=== PATIENT | male | born 1995 | race Caucasian/White ===

== ENCOUNTER 2017-02-01 22:20 | Observation (INO) | payer MEDICAID ==
[2017-02-01 22:38] VITALS: BMI 29.0
[2017-02-01] MEDS ORDERED: Sodium Chloride 0.9% 1,000 ML IV STA (22:46)
[2017-02-02 00:24] LABS: ALB/GLOB RATIO 1.3 (1.1-1.8); ALBUMIN 4.1 g/dL (3.0-4.8); ALT/SGPT 77 U/L (7-56); AMYLASE 62 U/L (35-125); AST/SGOT 36 U/L (15-59); BLOOD UREA NITROGEN 15 mg/dL (7-21); CALCIUM 8.8 mg/dL (8.4-10.5); GFR AFRICAN-AMERICAN > 60; GFR NON-AFRICAN AMERICAN > 60; LIPASE 73 U/L (23-300)
--- NOTE | 2017-02-02 00:31 | ED PDOC ---
Arrival/HPI <Kevin Machuca - Last Filed: 02/02/17 00:57> - General Historian: Patient - History of Present Illness Time/Duration: < week (2 days) Symptom Onset: Gradual Symptom Course: Unchanged Activities at Onset: Rest, Light Context: Home <Julianna Jones - Last Filed: 02/02/17 01:54> - General Chief Complaint: Abdominal Pain Time Seen by Provider: 02/01/17 22:46 - History of Present Illness Narrative History of Present Illness (Text): 02/01/17 22:45 21 year old male, with no significant past medical history, who presents to the Emergency department complaining of LUQ with associated nausea, vomiting, and diarrhea for the past 2 days. Patient reports subjective fever since yesterday, with 4 episodes of vomiting yesterday none today, and 2 episode of diarrhea today. Patient states he noticed some blood in his stool. Patient denies any recent sick contact. Patient described abdominal pain as achy, stabbing, and non -radiating. Patient denies any chest pain, shortness of breath, urinary symptoms , testicular pain, or any other complaints. Patient states he has not taken any medication for pain at home. (Julianna Jones) Past Medical History - Provider Review Nursing Documentation Reviewed: Yes - Infectious Disease Hx of Infectious Diseases: None - Psychiatric Hx Substance Use: No <Julianna Jones - Last Filed: 02/02/17 01:54> Family/Social History - Physician Review Nursing Documentation Reviewed: Yes Family/Social History: Unknown Family HX Smoking Status: Never Smoked Hx Alcohol Use: Yes Frequency of alcohol use: Socially Hx Substance Use: No <Julianna Jones - Last Filed: 02/02/17 01:54> Allergies/Home Meds <Kevin aMchuca - Last Filed: 02/02/17 00:57> <Julianna Jones - Last Filed: 02/02/17 01:54> Allergies/Adverse Reactions: Allergies shellfish derived Allergy (Verified 02/01/17 22:43) SHORTNESS OF BREATH Review of Systems - Physician Review All systems were reviewed & negative as marked: Yes - Review of Systems Constitutional: Fevers (+subjective fever) Eyes: Normal ENT: Normal Respiratory: Normal. absent: SOB, Cough Cardiovascular: Normal. absent: Chest Pain Gastrointestinal: Abdominal Pain, Diarrhea, Nausea, Vomiting, Hematochezia, Hematemesis Genitourinary Male: Normal. absent: Dysuria, Frequency, Hematuria, Urinary Output Changes Musculoskeletal: Normal. absent: Back Pain, Neck Pain Skin: Normal Neurological: Normal. absent: Headache, Dizziness Endocrine: Normal Hemo/Lymphatic: Normal Psychiatric: Normal <RobertJulianna T - Last Filed: 02/02/17 01:54> Physical Exam Vital Signs Reviewed: Yes Temperature: Afebrile Blood Pressure: Normal Pulse: Tachycardic Respiratory Rate: Normal Appearance: Positive for: Well-Appearing, Non-Toxic, Comfortable Pain Distress: None Mental Status: Positive for: Alert and Oriented X 3 - Systems Exam Head: Present: Atraumatic, Normocephalic Pupils: Present: PERRL Extroacular Muscles: Present: EOMI Conjunctiva: Present: Normal Mouth: Present: Moist Mucous Membranes Neck: Present: Normal Range of Motion Respiratory/Chest: Present: Clear to Auscultation, Good Air Exchange. No: Respiratory Distress, Accessory Muscle Use Cardiovascular: Present: Regular Rate and Rhythm, Normal S1, S2. No: Murmurs Abdomen: Present: Tenderness (LUQ tenderness, some epigastric tenderness), Normal Bowel Sounds. No: Distention, Peritoneal Signs Rectal: Present: Normal Rectal Tone, Other (chaparoned by tanvir REECE ). No: Occult Blood, Rectal Tenderness, Gross Blood, Melena, Hemorrhoids, Fissures, Nodule/Mass/Lesions Back: Present: Normal Inspection. No: CVA Tenderness, Midline Tenderness, Paraspinal Tenderness Upper Extremity: Present: Normal Inspection. No: Cyanosis, Edema Lower Extremity: Present: Normal Inspection, NORMAL PULSES, Normal ROM, Neurovascularly Intact, Capillary Refill < 2 s. No: Edema, Cyanosis, Tenderness , Swelling, Erythema, Deformity, Temperature Abnormalties Neurological: Present: GCS=15, Speech Normal Skin: Present: Warm, Dry, Normal Color. No: Rashes Psychiatric: Present: Alert, Oriented x 3 <Julianna Jones - Last Filed: 02/02/17 01:54> Vital Signs Temp Pulse Resp BP Pulse Ox 02/01/17 22:44 98.2 F 102 H 16 147/74 98 Medical Decision Making <Kevin Machuca - Last Filed: 02/02/17 00:57> - Lab Interpretations I have reviewed the lab results: Yes <Julianna Jones - Last Filed: 02/02/17 01:54> ED Course and Treatment: 02/01/17 22:45 Impression: 21 year old male complaining of LUQ pain, nausea, vomiting, and diarrhea. Plan: -- US Abdomen: FINDINGS: There is a negative sonographic Davison's sign per invasive cardiovascular technologist. No gallstones. No pericholecystic fluid. The common bile duct measures 4. 5 cm which is within normal limits. The liver is normal and measures 15 x 11 x 8 cm. The spleen is normal. The pancreas is nonvisualized. No hydronephrosis. The right kidney measures 10 cm in length and the left kidney measures 12 cm in length. IMPRESSION: No acute findings. -- CT Abdomen and Pelvis w/o contrast: FINDINGS: The liver, spleen, gallbladder and pancreas appear grossly normal on this non- contrast study. No perinephric stranding. No hydronephrosis. No obstructing calculi. The bowel appears grossly normal. A normal appendix is identified coronal images 45 through 53. There are innumerable mesenteric lymph nodes throughout the abdomen, some of which are borderline prominent. This could represent the patient's baseline however infectious, inflammatory, neoplastic etiologies would also be possible. There is no focal stranding within the fat to suggest mesenteric adenitis. Short-term followup is recommended to assess for stability. There is a small umbilical fat hernia. IMPRESSION: Numerous mesenteric lymph nodes throughout the abdomen as discussed above. -- CBC: wbc:18.4 + eosinophils 18, bands 3 --CMP: alt; 77 --amylase -- lipase -- Urinalysis: + trace protein -- 1L IV fluids -- Zofran, Protonix -- Reassess and disposition Progress Notes: case discussed with dr. nunes; accepts observational status admission for leukocytosis, abdominal pain. with gi consult. pt with abdominal pain, Numerous mesenteric lymph nodes throughout the abdomen, eosinophilia and bandemia. pt recently moved from [facility] to 3 months ago. blood cultures pending. case discussed with dr. machuca; will start rocephin and flagyl IV. impression; abdominal pain, leukocytosis, bandemia admit observational status to med/surg. 02/02/17 01:54 (Azoia,Julianna T) - Lab Interpretations Lab Results: 02/02/17 00:00 02/02/17 00:00 Lab Results 02/02/17 00:55: Urine Color Yellow, Urine Appearance Clear, Urine pH 6.0, Ur Specific [place] 1.025, Urine Protein Trace H, Urine Glucose (UA) Negative, Urine Ketones Negative, Urine Blood Negative, Urine Nitrate Negative, Urine Bilirubin Negative, Urine Urobilinogen 0.2, Ur Leukocyte Esterase Negative, Urine RBC Pending, Urine WBC Pending 02/02/17 00:00: WBC 18.4 H, RBC 5.06, Hgb 15.2, Hct 42.2, MCV 83.4, MCH 30.0, MCHC 36.0, RDW 13.1, Plt Count 307, MPV 11.7 H, Neutrophils % (Manual) 54, Band Neutrophils % 3 H, Lymphocytes % (Manual) 17 L, Monocytes % (Manual) 8 H, Eosinophils % (Manual) 18 H, Platelet Evaluation Normal 02/02/17 00:00: Sodium 139, Potassium 3.6, Chloride 102, Carbon Dioxide 29, Anion Gap 12, BUN 15, Creatinine 1.1, Est GFR ( Amer) > 60, Est GFR (Non- Af Amer) > 60, Random Glucose 93, Calcium 8.8, Total Bilirubin 0.3, AST 36, ALT 77 H, Alkaline Phosphatase 132, Total Protein 7.3, Albumin 4.1, Globulin 3.3, Albumin/Globulin Ratio 1.3, Amylase 62, Lipase 73 - RAD Interpretation Radiology Orders: 02/01/17 23:22 ABD & PELVIS W/O PO OR IV CONT [CT] Stat ABDOMEN COMPLETE [US] Stat - Medication Orders Current Medication Orders: Metronidazole (Flagyl) 500 mg in 100 mls @ 100 mls/hr IVPB STAT STA PRN Reason: Protocol Stop: 02/02/17 02:31 Ceftriaxone Sodium (Rocephin 1 Gram Ivpb) 1 gm in 100 mls @ 200 mls/hr IVPB STAT STA PRN Reason: Protocol Stop: 02/02/17 01:59 Ciprofloxacin (Cipro 400mg/200ml Dsw) 400 mg in 200 mls @ 133.3 mls/hr IVPB Q12 INGA PRN Reason: Protocol Stop: 02/02/17 11:31 Metronidazole (Flagyl) 500 mg in 100 mls @ 100 mls/hr IVPB Q8 INGA PRN Reason: Protocol Sodium Chloride (Sodium Chloride 0.9%) 1,000 mls @ 100 mls/hr IV .Q10H INGA Pantoprazole Sodium (Protonix Inj) 40 mg IVP DAILY INGA Discontinued Medications Sodium Chloride (Sodium Chloride 0.9%) 1,000 mls @ 999 mls/hr IV .Q1H1M STA Stop: 02/01/17 23:46 Last Admin: 02/02/17 00:03 Dose: 999 mls/hr Ondansetron HCl (Zofran Inj) 4 mg IVP STAT STA Stop: 02/01/17 22:47 Last Admin: 02/02/17 00:03 Dose: 4 mg Pantoprazole Sodium (Protonix Inj) 40 mg IVP STAT STA Stop: 02/01/17 23:17 Last Admin: 02/02/17 00:03 Dose: 40 mg - PA / YOUNG ADULT LIBRARIAN / Resident Statement /DO has reviewed & agrees with the documentation as recorded. / has examined the patient and agrees with the treatment plan. <Kevin Machuca - Last Filed: 02/02/17 00:57> - Scribe Statement The provider has reviewed the documentation as recorded by the Scribe <Julianna Jones - Last Filed: 02/02/17 01:54> - Scribe Statement Lucinda May All medical record entries made by the Scribe were at my direction and personally dictated by me. I have reviewed the chart and agree that the record accurately reflects my personal performance of the history, physical exam, medical decision making, and the department course for this patient. I have also personally directed, reviewed, and agree with the discharge instructions and disposition. (Julianna Jones) Disposition/Present on Arrival <Kevin Machuca - Last Filed: 02/02/17 00:57> - Present on Arrival Any Indicators Present on Arrival: No History of DVT/PE: No History of Uncontrolled Diabetes: No Urinary Catheter: No History of Decub. Ulcer: No History Surgical Site Infection Following: None - Disposition Have Diagnosis and Disposition been Completed?: Yes Disposition Time: 01:32 Patient Plan: Observation <Julianna Jones - Last Filed: 02/02/17 01:54> - Disposition Diagnosis: Abdominal pain, Leukocytosis Disposition: HOSPITALIZED Patient Problems: Current Active Problems Problem Status Onset Abdominal pain Acute Leukocytosis Acute Condition: FAIR
[2017-02-02 00:32] LABS: HEMOGLOBIN 15.2 gm/dL (14.0-18.0); MEAN CELL VOLUME 83.4 fL (80.0-105.0); MEAN PLATELET VOLUME 11.7 fl (7.0-11.0); PLATELET COUNT 307 10^3/uL (120.0-450.0); RBC 5.06 10^6/uL (3.5-6.1); RED CELL DISTRIBUTION WIDTH 13.1 % (11.5-14.5); WHITE BLOOD COUNT 18.4 10^3/ul (4.5-11.0)
--- NOTE | 2017-02-02 00:39 | US ---
EXAM: US Abdomen Complete CLINICAL HISTORY: 21 years old, male; Pain; Abdominal pain; Generalized; Additional info: Luq abd pain TECHNIQUE: Real-time ultrasound of the abdomen (complete) with image documentation. EXAM DATE/TIME: 02/01/2017 11:22 PM COMPARISON: No relevant prior studies available. FINDINGS: There is a negative sonographic Davison's sign per systems technologist. No gallstones. No pericholecystic fluid. The common bile duct measures 4. 5 cm which is within normal limits. The liver is normal and measures 15 x 11 x 8 cm. The spleen is normal. The pancreas is nonvisualized. No hydronephrosis. The right kidney measures 10 cm in length and the left kidney measures 12 cm in length. IMPRESSION: No acute findings.
--- NOTE | 2017-02-02 01:07 | CT ---
EXAM: CT Abdomen and Pelvis Without Intravenous Contrast CLINICAL HISTORY: 21 years old, male; Pain; Abdominal pain; Generalized TECHNIQUE: Axial computed tomography images of the abdomen and pelvis without intravenous contrast. This CT exam was performed using one or more of the following dose reduction techniques: automated exposure control, adjustment of the mA and/or kV according to patient size, and/or use of iterative reconstruction technique. Coronal and sagittal reformatted images were created and reviewed. EXAM DATE/TIME: 02/01/2017 11:22 PM COMPARISON: No relevant prior studies available. FINDINGS: The liver, spleen, gallbladder and pancreas appear grossly normal on this non-contrast study. No perinephric stranding. No hydronephrosis. No obstructing calculi. The bowel appears grossly normal. A normal appendix is identified coronal images 45 through 53. There are innumerable mesenteric lymph nodes throughout the abdomen, some of which are borderline prominent. This could represent the patient's baseline however infectious, inflammatory, neoplastic etiologies would also be possible. There is no focal stranding within the fat to suggest mesenteric adenitis. Short-term followup is recommended to assess for stability. There is a small umbilical fat hernia. IMPRESSION: Numerous mesenteric lymph nodes throughout the abdomen as discussed above.
[2017-02-02 01:12] LABS: BAND 3 % (0-2); LYMPHOCYTE 17 % (22.0-35.0); NEUTROPHIL 54 % (50.0-70.0)
[2017-02-02 01:13] LABS: EOSINOPHIL 18 % (0.0-3.0); MONOCYTE 8 % (1.0-6.0); PLATELET ESTIMATE NORMAL (NORMAL)
[2017-02-02] MEDS ORDERED: cefTRIAXone 1 gm 1 GM/100 ML BAG IVPB STA (01:30)
[2017-02-02] MEDS ORDERED: metroNIDAZOLE IV 500 mg/100 ml 500 MG/100 ML BAG IVPB STA (01:32)
[2017-02-02 01:46] LABS: URINE BILIRUBIN NEGATIVE (NEGATIVE); URINE BLOOD NEGATIVE (NEGATIVE); URINE GLUCOSE (UA) NEGATIVE (NEGATIVE); URINE LEUKOCYTE ESTERASE NEGATIVE Leu/uL (NEGATIVE); URINE NITRATE NEGATIVE (NEGATIVE); URINE PROTEIN TRACE mg/dL (<30 mg/dL); URINE UROBILINOGEN 0.2 E.U./dL (<1 E.U./dL)
[2017-02-02 01:49] LABS: URINE APPEARANCE CLEAR (CLEAR); URINE COLOR YELLOW (YELLOW)
[2017-02-02 01:59] LABS: URINE EPITHELIAL CELLS 0 - 2 /hpf (0-5); URINE RBC 0 - 2 /hpf (0-2); URINE WBC 0 - 2 /hpf (0-6)
--- NOTE | 2017-02-02 02:00 | CP.PCM.HP ---
<Jaison Ward - Last Filed: 02/02/17 02:41> History of Present Illness - History of Present Illness History of Present Illness: cc: abdominal pain HPI: Patient is a 21yo male with no significant past medical history that presents c/o abdominal pain. Patient reported that the pain started 3 days prior , localized to the left upper quadrant and describes it as being a dull, achy pain. He reports that the pain is non-radiating and has been associated with nausea, 4 episodes of NBNB emesis, subjective fevers and several episodes of watery diarrhea. He reported that his first noticable symptom was diarrhea and noticed scant amounts of blood in his stool yesterday. [place] 7 [place] prior and reports not having traveled outside of the [place] since then. He denies sick contacts however states that he had some questionable Beng[place] food approximately 1 week ago. Reported no apparent alleviating or exacerbating factors and prior to this was in his normal state of health. Denies chest pain, palpitations, SOB, chills, cough, dysuria, frequency, urgency, focal weakness, numbness, tingling. 12 point ROS as per HPI above, otherwise negative PMHx: denies PSHx: denies Allergies: shellfish Medications: denies Social Hx: denies tobacco, alcohol and illicit drug use Family Hx: No history of malignancy in the family; Mother: chronic constipation Present on Admission - Present on Admission Any Indicators Present on Admission: No Past Patient History - Infectious Disease Hx of Infectious Diseases: None - Past Social History Smoking Status: Never Smoked - PSYCHIATRIC Hx Substance Use: No - SURGICAL HISTORY Hx Surgeries: No Meds Allergies/Adverse Reactions: Allergies Allergy/AdvReac Type Severity Reaction Status Date / Time shellfish derived Allergy SHORTNESS Verified 02/01/17 22:43 OF BREATH Physical Exam - Constitutional Appears: No Acute Distress - Head Exam Head Exam: ATRAUMATIC, NORMAL INSPECTION, NORMOCEPHALIC - Eye Exam Eye Exam: EOMI, PERRL - ENT Exam ENT Exam: Mucous Membranes Moist - Neck Exam Neck exam: Positive for: Normal Inspection - Respiratory Exam Respiratory Exam: Clear to Auscultation Bilateral. absent: Rales, Rhonchi, Wheezes - Cardiovascular Exam Cardiovascular Exam: RRR, +S1, +S2. absent: Diastolic murmur, Gallop, Rubs, Systolic Murmur - GI/Abdominal Exam GI & Abdominal Exam: Soft, Tenderness (tender to palpation in the LUQ and epigastric region; no guarding). absent: Distended, Firm, Guarding, Rebound - Extremities Exam Extremities exam: Positive for: normal inspection, pedal pulses present. Negative for: calf tenderness, pedal edema, tenderness - Neurological Exam Neurological exam: Alert, CN II-XII Intact, Oriented x3 - Psychiatric Exam Psychiatric exam: Normal Affect, Normal Mood - Skin Skin Exam: Dry, Intact, Normal Color, Warm Results - Vital Signs Recent Vital Signs: Last Vital Signs Temp 98.2 F 02/01/17 22:44 Pulse 102 H 02/01/17 22:44 Resp 16 02/01/17 22:44 BP 147/74 02/01/17 22:44 Pulse Ox 98 02/01/17 22:44 - Labs Result Diagrams: 02/02/17 00:00 02/02/17 00:00 Labs: Laboratory Results - last 24 hr 02/02/17 02/02/17 02/02/17 00:00 00:00 00:55 WBC 18.4 H RBC 5.06 Hgb 15.2 Hct 42.2 MCV 83.4 MCH 30.0 MCHC 36.0 RDW 13.1 Plt Count 307 MPV 11.7 H Neutrophils % (Manual) 54 Band Neutrophils % 3 H Lymphocytes % (Manual) 17 L Monocytes % (Manual) 8 H Eosinophils % (Manual) 18 H Platelet Evaluation Normal Sodium 139 Potassium 3.6 Chloride 102 Carbon Dioxide 29 Anion Gap 12 BUN 15 Creatinine 1.1 Est GFR ( Amer) > 60 Est GFR (Non-Af Amer) > 60 Random Glucose 93 Calcium 8.8 Total Bilirubin 0.3 AST 36 ALT 77 H Alkaline Phosphatase 132 Total Protein 7.3 Albumin 4.1 Globulin 3.3 Albumin/Globulin Ratio 1.3 Amylase 62 Lipase 73 Urine Color Yellow Urine Appearance Clear Urine pH 6.0 Ur Specific [place] 1.025 Urine Protein Trace H Urine Glucose (UA) Negative Urine Ketones Negative Urine Blood Negative Urine Nitrate Negative Urine Bilirubin Negative Urine Urobilinogen 0.2 Ur Leukocyte Esterase Negative Assessment & Plan - Assessment and Plan (Free Text) Plan: 21yo male with no significant past medical history presents c/o LUQ abdominal pain 1. LUQ abdominal pain -Afebrile with leukocytosis of 18.4 on admission -CBC notable for eosinophils and bandemia possible infectious in origin -Rectal exam performed in the ED revealed no gross blood, normal rectal tone -Abdominal US revealed no acute findings -CT abd/pelvis revealed innumerable mesenteric lymph nodes throughout the abdomen. Could represent patients baseline however infectious, inflammatory and neoplastic etiologies would also be possible; see full report -Pending stool culture, fecal leukocytes, ova&parasites, cdiff toxin/antigen -IVF hydration with NS @ 100cc/hr -Continue with cipro and flagyl for possible infectious etiologies -Continue protonix 40mg IVP -Continue zofran 4mg q4h PRN for nausea/vomiting, tylenol 650mg PO q4h for fevers -NPO -GI consulted - Dr. Malik 2. GI/DVT prophylaxis -Protonix/SCD's Patient seen and case discussed with attending, Dr. Gomez - Date & Time Date: 02/02/17 Time: 02:01 <Dionna Gomez - Last Filed: 02/02/17 04:57> Results - Vital Signs Recent Vital Signs: Last Vital Signs Temp 99.3 F 02/02/17 04:29 Pulse 99 H 02/02/17 04:29 Resp 20 02/02/17 04:29 BP 129/85 02/02/17 04:29 Pulse Ox 96 02/02/17 02:55 - Labs Result Diagrams: 02/02/17 00:00 02/02/17 00:00 Attending/Attestation - Attestation I have personally seen and examined this patient.: Yes I have fully participated in the care of the patient.: Yes I have reviewed all pertinent clinical information: Yes Notes (Text): 02/02/17 04:53 Patient was seen when he was in bed # 8 in the ER. Agree with history, physical examination, assessment and plan. 21 year old male with history of allergy to seafood, constipation, anemia, migraine headaches, occasional alcohol use, epistaxis and sore throat comes in with complains of LUQ pain, nausea, vomiting, diarrhoea, shivering, sweating, CT scan of abdomen shows mysentric lymphadenites, ? infectious, neoplastic lymphnodes swelling.
[2017-02-02] MEDS: Sodium Chloride 0.9% 1,000 ML IV SCH ×2 (02:46→13:53)
[2017-02-02] MEDS: cefTRIAXone 1 gm 1 GM/100 ML BAG IVPB SCH (09:58)
[2017-02-02] MEDS ORDERED: Ciprofloxacin 400mg/200ml D5W 400 MG/200 ML BAG IVPB SCH (10:00)
--- NOTE | 2017-02-02 11:47 | CP.PCM.CON ---
<Tammy Nieves - Last Filed: 02/02/17 11:50> History of Present Illness - History of Present Illness History of Present Illness: Gastroenterology Fellow/PGY4 Progress Note 21 year old male with no prior medical history presenting with abdominal pain, vomiting, and diarrhea. Patient describes progressive left upper abdominal pain after eating pork fried rice two days ago, pain scale 10/10. Associated fever, chills, bilious vomitus twice daily, and over ten episodes of watery diarrhea twice daily. He notes slight improvement of pain, pain scale 8/10. He continues to have diarrhea since admission. Denies sick contacts, recent travel, recent antibiotics, distension, hematemesis, melena, or hematochezia. No prior EGD or colonoscopy. Family- denies colon cancer, stomach cancer Social- denies tobacco, alcohol, illicit drug use Surgery- none Review of Systems - Review of Systems Review of Systems: 12-point review of systems negative except for as above Past Patient History - Infectious Disease Hx of Infectious Diseases: None - Past Social History Smoking Status: Never Smoked - CARDIAC Hx Cardiac Disorders: No - PULMONARY Hx Respiratory Disorders: No - NEUROLOGICAL Hx Neurological Disorder: No - HEENT Hx HEENT Problems: No - RENAL Hx Chronic Kidney Disease: No - ENDOCRINE/METABOLIC Hx Endocrine Disorders: No - HEMATOLOGICAL/ONCOLOGICAL Hx Blood Disorders: No - INTEGUMENTARY Hx Dermatological Problems: No - MUSCULOSKELETAL/RHEUMATOLOGICAL Hx Musculoskeletal Disorders: No Hx Falls: No - GASTROINTESTINAL Hx Gastrointestinal Disorders: No - GENITOURINARY/GYNECOLOGICAL Hx Genitourinary Disorders: No - PSYCHIATRIC Hx Psychophysiologic Disorder: No - SURGICAL HISTORY Hx Surgeries: No Meds Home Medications: Home Medication List Medication Instructions Recorded Confirmed Type Ciprofloxacin HCl [Cipro] 500 mg PO BID #14 tablet 02/02/17 Rx Metronidazole [Flagyl] 500 mg PO TID #21 tablet 02/02/17 Rx Allergies/Adverse Reactions: Allergies Allergy/AdvReac Type Severity Reaction Status Date / Time shellfish derived Allergy SHORTNESS Verified 02/01/17 22:43 OF BREATH - Medications Medications: Current Medications Acetaminophen (Tylenol 325mg Tab) 650 mg PO Q4H PRN PRN Reason: Fever >100.4 F Metronidazole (Flagyl) 500 mg in 100 mls @ 100 mls/hr IVPB Q8H [facility] PRN Reason: Protocol Sodium Chloride (Sodium Chloride 0.9%) 1,000 mls @ 100 mls/hr IV .Q10H [facility] Last Admin: 02/02/17 02:46 Dose: 100 mls/hr Ceftriaxone Sodium (Rocephin 1 Gram Ivpb) 1 gm in 100 mls @ 100 mls/hr IVPB DAILY [facility] PRN Reason: Protocol Last Admin: 02/02/17 09:58 Dose: 100 mls/hr Pantoprazole Sodium (Protonix Inj) 40 mg IVP DAILY [facility] Last Admin: 02/02/17 10:01 Dose: 40 mg Physical Exam - Constitutional Appears: Non-toxic, No Acute Distress - Head Exam Head Exam: ATRAUMATIC, NORMOCEPHALIC - Eye Exam Eye Exam: EOMI, PERRL Pupil Exam: PERRL. absent: Miosis, Mydriatic - ENT Exam ENT Exam: Mucous Membranes Moist, Normal Oropharynx - Neck Exam Neck exam: Positive for: Full Rom, Normal Inspection - Respiratory Exam Respiratory Exam: Clear to Auscultation Bilateral. absent: Rales, Rhonchi, Wheezes - Cardiovascular Exam Cardiovascular Exam: RRR, +S1, +S2. absent: Gallop, Rubs - GI/Abdominal Exam GI & Abdominal Exam: Normal Bowel Sounds, Soft, Tenderness. absent: Distended, Firm, Guarding, Organomegaly, Rebound, Rigid Additional comments: LUQ tenderness to palpation - Extremities Exam Extremities exam: Positive for: full ROM. Negative for: pedal edema - Neurological Exam Neurological exam: Alert, Oriented x3 - Psychiatric Exam Psychiatric exam: Normal Affect, Normal Mood - Skin Skin Exam: Dry, Intact, Normal Color, Warm Results - Vital Signs Recent Vital Signs: Last Vital Signs Temp 99.3 F 02/02/17 07:30 Pulse 101 H 02/02/17 07:30 Resp 20 02/02/17 07:30 BP 129/85 02/02/17 07:30 Pulse Ox 99 02/02/17 07:30 - Labs Result Diagrams: 02/02/17 00:00 02/02/17 00:00 Assessment & Plan - Assessment and Plan (Free Text) Assessment: 21 year old male with no prior medical history presenting with abdominal pain, vomiting, and diarrhea. Active treatment of likely infectious gastroenteritis. No prior EGD or colonoscopy. Plan: >Cdiff negative >pending stool culture >continue IVFs >on Cipro, Flagyl >supportive care: antiemetics, pain control, PPI >trend LFTs, ordered Hepatitis panel > will follow clinical course <ClarkeRyan - Last Filed: 02/02/17 16:55> Meds - Medications Medications: Current Medications Acetaminophen (Tylenol 325mg Tab) 650 mg PO Q4H PRN PRN Reason: Fever >100.4 F Metronidazole (Flagyl) 500 mg in 100 mls @ 100 mls/hr IVPB Q8H [facility] PRN Reason: Protocol Last Admin: 02/02/17 13:53 Dose: 100 mls/hr Sodium Chloride (Sodium Chloride 0.9%) 1,000 mls @ 100 mls/hr IV .Q10H [facility] Last Admin: 02/02/17 13:53 Dose: 100 mls/hr Ceftriaxone Sodium (Rocephin 1 Gram Ivpb) 1 gm in 100 mls @ 100 mls/hr IVPB DAILY [facility] PRN Reason: Protocol Last Admin: 02/02/17 09:58 Dose: 100 mls/hr Pantoprazole Sodium (Protonix Inj) 40 mg IVP DAILY [facility] Last Admin: 02/02/17 10:01 Dose: 40 mg Results - Vital Signs Recent Vital Signs: Last Vital Signs Temp 99.3 F 02/02/17 07:30 Pulse 101 H 02/02/17 07:30 Resp 20 02/02/17 07:30 BP 129/85 02/02/17 07:30 Pulse Ox 99 02/02/17 07:30 - Labs Result Diagrams: 02/02/17 00:00 02/02/17 00:00 Labs: Laboratory Results - last 24 hr 02/02/17 06:01 Stool Leukocytes, Qual Negative Attending/Attestation - Attestation I have personally seen and examined this patient.: Yes I have fully participated in the care of the patient.: Yes I have reviewed all pertinent clinical information: Yes Notes (Text): 02/02/17 16:52 21 year old male admitted with abdominal pain, nausea, vomiting, and diarrhea beginning shortly after eating romanian food recently. 1. Acute gastroenteritis Plan: -likely infectious gastroenteritis -stool studies pending, but so far negative -leukocytosis noted, on antibiotics empirically now -recommend supportive care with IV hydration / anti-emetics / pain control -supportive care -liquid diet and advance as tolerated when feeling better
[2017-02-02] MEDS: metroNIDAZOLE IV 500 mg/100 ml 500 MG/100 ML BAG IVPB SCH ×2 (13:53→19:25)
[2017-02-02 17:07] VITALS: RESP 18
--- NOTE | 2017-02-02 17:39 | US ---
PROCEDURE: Right upper extremity venous US CLINICAL HISTORY: Arm pain and swelling Evaluate for deep venous thrombosis. PHYSICIAN(S): Zaid Wray M.D FINDINGS: The visualized rightinternal jugular vein is sonographically normal and compressible. No evidence of obstruction or thrombus is seen. The visualized segments of the right subclavian vein are patent with normal waveforms. No sonographic evidence of obstruction or thrombosis is seen. The visualized deep venous system of the proximal right upper extremity is sonographically normal and compressible. IMPRESSION: 1. No sonographic evidence for deep venous thrombosis in the visualized segments of the right upper extremity.
[2017-02-02 18:08] LABS: HEPATITIS B SURFACE AG NEGATIVE (NEGATIVE)
[2017-02-02 18:13] LABS: HEPATITIS A IGM NEGATIVE (NEGATIVE)
[2017-02-02 18:14] LABS: HEPATITIS B CORE AB NEGATIVE (NEGATIVE)
[2017-02-02 18:26] LABS: HEPATITIS C ANTIBODY NEGATIVE (NEGATIVE)
[2017-02-03] MEDS: metroNIDAZOLE IV 500 mg/100 ml 500 MG/100 ML BAG IVPB SCH (02:20)
[2017-02-03] MEDS: Sodium Chloride 0.9% 1,000 ML IV SCH (04:49)
--- NOTE | 2017-02-03 07:32 | CP.PCM.PN ---
<Tammy Nieves - Last Filed: 02/03/17 10:05> Subjective - Date & Time of Evaluation Date of Evaluation: 02/03/17 Time of Evaluation: 07:28 - Subjective Subjective: Gastroenterology Fellow/PGY4 Progress Note Patient notes resolved abdominal pain. Tolerated liquid diet yesterday and regular diet this morning. Notes two episodes of watery diarrhea yesterday. A 12 -point review of systems negative except for as above. Objective - Vital Signs/Intake and Output Vital Signs (last 24 hours): Temp Pulse Resp BP Pulse Ox 98.0 F 95 H 18 126/78 98 02/02/17 16:00 02/02/17 16:00 02/02/17 16:00 02/02/17 16:00 02/02/17 16:00 Intake and Output: 02/03/17 02/03/17 06:59 18:59 Intake Total 2620 Balance 2620 - Medications Medications: Current Medications Acetaminophen (Tylenol 325mg Tab) 650 mg PO Q4H PRN PRN Reason: Fever >100.4 F Last Admin: 02/02/17 23:23 Dose: 650 mg Metronidazole (Flagyl) 500 mg in 100 mls @ 100 mls/hr IVPB Q8H [facility] PRN Reason: Protocol Last Admin: 02/03/17 02:20 Dose: 100 mls/hr Sodium Chloride (Sodium Chloride 0.9%) 1,000 mls @ 100 mls/hr IV .Q10H [facility] Last Admin: 02/03/17 04:49 Dose: 100 mls/hr Ceftriaxone Sodium (Rocephin 1 Gram Ivpb) 1 gm in 100 mls @ 100 mls/hr IVPB DAILY [facility] PRN Reason: Protocol Last Admin: 02/02/17 09:58 Dose: 100 mls/hr Pantoprazole Sodium (Protonix Inj) 40 mg IVP DAILY [facility] Last Admin: 02/02/17 10:01 Dose: 40 mg - Constitutional Appears: Non-toxic, No Acute Distress - Head Exam Head Exam: ATRAUMATIC, NORMOCEPHALIC - Eye Exam Eye Exam: EOMI, PERRL Pupil Exam: PERRL. absent: Miosis, Mydriatic - ENT Exam ENT Exam: Mucous Membranes Moist, Normal Oropharynx - Neck Exam Neck Exam: Full ROM, Normal Inspection - Respiratory Exam Respiratory Exam: Clear to Ausculation Bilateral. absent: Rales, Rhonchi, Wheezes - Cardiovascular Exam Cardiovascular Exam: RRR, +S1, +S2. absent: Gallop, Rubs - GI/Abdominal Exam GI & Abdominal Exam: Soft, Normal Bowel Sounds. absent: Distended, Firm, Guarding, Rigid, Tenderness, Mass, Organomegaly, Rebound - Extremities Exam Extremities Exam: Full ROM. absent: Pedal Edema - Neurological Exam Neurological Exam: Alert, Awake - Psychiatric Exam Psychiatric exam: Normal Affect, Normal Mood - Skin Skin Exam: Dry, Intact, Normal Color, Warm Assessment and Plan - Assessment and Plan (Free Text) Assessment: 21 year old male with no prior medical history presenting with abdominal pain, vomiting, and diarrhea. Active treatment of infectious gastroenteritis likely secondary to bel[place] food intake. No prior EGD or colonoscopy. Plan: >Cdiff and fecal leukocytes negative >pending stool culture and O&P >leukocytosis improving >on Ceftriaxone, Flagyl >continue supportive care >tolerated regular diet today >primary team plans for outpatient PCP follow up with CT surveillance of lymphadenopathy >antibiotics not needed on discharge, given likely reactive leukocytosis and lymphadenopathy -may consider completion of 5 day antibiotic course if diarrhea persists to day >okay to discharge from GI standpoint <Harshad Ruvalcaba - Last Filed: 02/03/17 12:21> Objective - Vital Signs/Intake and Output Vital Signs (last 24 hours): Temp Pulse Resp BP Pulse Ox 98.1 F 80 18 110/65 99 02/03/17 07:30 02/03/17 07:30 02/03/17 07:30 02/03/17 07:30 02/03/17 07:30 Intake and Output: 02/03/17 02/03/17 06:59 18:59 Intake Total 2620 Balance 2620 - Medications Medications: Current Medications Acetaminophen (Tylenol 325mg Tab) 650 mg PO Q4H PRN PRN Reason: Fever >100.4 F Last Admin: 02/03/17 08:25 Dose: 650 mg Metronidazole (Flagyl) 500 mg in 100 mls @ 100 mls/hr IVPB Q8H [facility] PRN Reason: Protocol Last Admin: 02/03/17 02:20 Dose: 100 mls/hr Sodium Chloride (Sodium Chloride 0.9%) 1,000 mls @ 100 mls/hr IV .Q10H [facility] Last Admin: 02/03/17 04:49 Dose: 100 mls/hr Ceftriaxone Sodium (Rocephin 1 Gram Ivpb) 1 gm in 100 mls @ 100 mls/hr IVPB DAILY [facility] PRN Reason: Protocol Last Admin: 02/03/17 09:23 Dose: 100 mls/hr Pantoprazole Sodium (Protonix Inj) 40 mg IVP DAILY [facility] Last Admin: 02/03/17 09:21 Dose: 40 mg - Labs Labs: 02/03/17 08:00 02/03/17 08:00 Attending/Attestation - Attestation I have personally seen and examined this patient.: Yes I have fully participated in the care of the patient.: Yes I have reviewed all pertinent clinical information, including history, physical exam and plan: Yes Notes (Text): 02/03/17 12:19 I have seen and examined patient with GI fellow. No acute events overnight, he is seen resting in bed comfortably. He had one loose bowel movement yesterday evening but none overnight. He denies abdominal pain, nausea, vomiting, fever/ chills. Tolerated breakfast this morning without difficulty. Abdominal pain, diarrhea - resolving gastroenteritis - May continue with antibiotic regimen to complete 5 day course - Advance diet as tolerated - From GI perspective ok to discharge home with subsequent outpatient follow up. Will sign off case, please reconsult as necessary, thank you.
[2017-02-03 07:48] VITALS: BP 110/65; PULSE 80; TEMP 98.1; O2SAT 99
[2017-02-03 08:17] LABS: BASO # 0.06 K/mm3 (0.0-2.0); BASO % 0.4 % (0.0-3.0); EOS # 3.9 (0.0-0.7); EOS % 23.7 % (1.5-5.0); GRAN # 8.96 (1.4-6.5); GRAN % 53.8 % (50.0-68.0); HEMOGLOBIN 13.5 gm/dL (14.0-18.0); LYMPH # 2.5 (1.2-3.4); LYMPH % 15.1 % (22.0-35.0); MEAN CORPUSCULAR HEMOGLOBIN 29.5 pg (25.0-35.0); MEAN CORPUSCULAR HGB CONC 35.2 g/dl (31.0-37.0); MEAN PLATELET VOLUME 11.4 fl (7.0-11.0); MONO # 1.2 (0.1-0.6); PLATELET COUNT 254 10^3/uL (120.0-450.0); RBC 4.57 10^6/uL (3.5-6.1); RED CELL DISTRIBUTION WIDTH 13.2 % (11.5-14.5); WHITE BLOOD COUNT 16.6 10^3/ul (4.5-11.0)
[2017-02-03 08:28] LABS: ALB/GLOB RATIO 1.1 (1.1-1.8); ALBUMIN 3.3 g/dL (3.0-4.8); ALT/SGPT 55 U/L (7-56); AST/SGOT 26 U/L (15-59); BLOOD UREA NITROGEN 9 mg/dL (7-21); CALCIUM 8.8 mg/dL (8.4-10.5); GFR AFRICAN-AMERICAN > 60; GFR NON-AFRICAN AMERICAN > 60
[2017-02-03] MEDS: cefTRIAXone 1 gm 1 GM/100 ML BAG IVPB SCH (09:23)
--- NOTE | 2017-02-03 16:02 | CP.PCM.DIS ---
<HarrietRubin - Last Filed: 02/03/17 15:56> Provider - Provider Date of Admission: 02/02/17 01:35 Attending physician: Chica Hernandez MD Primary care physician: Kevin Antonio Consults: GI- Dr. Berman Time Spent in preparation of Discharge (in minutes): 35 Diagnosis - Discharge Diagnosis (1) Abdominal pain Status: Acute Hospital Course - Lab Results Lab Results: Micro Results 02/02/17 06:01 Stool Ova and Parasite Concentrate Exam - Final 02/02/17 02:32 Blood Blood Culture - Preliminary NO GROWTH AFTER 24 HOURS 02/02/17 02:02 Blood Blood Culture - Preliminary NO GROWTH AFTER 24 HOURS 02/02/17 06:01 Stool C. difficile Antigen & Toxin A,B (M - Final Most Recent Lab Values WBC 16.6 10^3/ul (4.5-11.0) H 02/03/17 08:00 RBC 4.57 10^6/uL (3.5-6.1) 02/03/17 08:00 Hgb 13.5 gm/dL (14.0-18.0) L 02/03/17 08:00 Hct 38.4 % (42.0-52.0) L 02/03/17 08:00 MCV 84.0 fL (80.0-105.0) 02/03/17 08:00 MCH 29.5 pg (25.0-35.0) 02/03/17 08:00 MCHC 35.2 g/dl (31.0-37.0) 02/03/17 08:00 RDW 13.2 % (11.5-14.5) 02/03/17 08:00 Plt Count 254 10^3/uL (120.0-450.0) 02/03/17 08:00 MPV 11.4 fl (7.0-11.0) H 02/03/17 08:00 Gran % 53.8 % (50.0-68.0) 02/03/17 08:00 Lymph % (Auto) 15.1 % (22.0-35.0) L 02/03/17 08:00 Bledsoe % (Auto) 7.0 % (1.0-6.0) H 02/03/17 08:00 Eos % (Auto) 23.7 % (1.5-5.0) H 02/03/17 08:00 Baso % (Auto) 0.4 % (0.0-3.0) 02/03/17 08:00 Gran # 8.96 (1.4-6.5) H 02/03/17 08:00 Lymph # 2.5 (1.2-3.4) 02/03/17 08:00 [place] # 1.2 (0.1-0.6) H 02/03/17 08:00 Eos # 3.9 (0.0-0.7) H 02/03/17 08:00 Baso # 0.06 K/mm3 (0.0-2.0) 02/03/17 08:00 Neutrophils % (Manual) 54 % (50.0-70.0) 02/02/17 00:00 Band Neutrophils % 3 % (0-2) H 02/02/17 00:00 Lymphocytes % (Manual) 17 % (22.0-35.0) L 02/02/17 00:00 Monocytes % (Manual) 8 % (1.0-6.0) H 02/02/17 00:00 Eosinophils % (Manual) 18 % (0.0-3.0) H 02/02/17 00:00 Platelet Evaluation Normal (NORMAL) 02/02/17 00:00 Sodium 139 mmol/L (132-148) 02/03/17 08:00 Potassium 3.5 mmol/L (3.6-5.0) L 02/03/17 08:00 Chloride 106 mmol/L (98-107) 02/03/17 08:00 Carbon Dioxide 23 mmol/L (21-33) 02/03/17 08:00 Anion Gap 14 (10-20) 02/03/17 08:00 BUN 9 mg/dL (7-21) 02/03/17 08:00 Creatinine 1.0 mg/dL (0.5-1.4) 02/03/17 08:00 Est GFR ( Amer) > 60 02/03/17 08:00 Est GFR (Non-Af Amer) > 60 02/03/17 08:00 Random Glucose 77 mg/dL (70-110) 02/03/17 08:00 Calcium 8.8 mg/dL (8.4-10.5) 02/03/17 08:00 Total Bilirubin 0.3 mg/dL (0.2-1.3) 02/03/17 08:00 AST 26 U/L (15-59) 02/03/17 08:00 ALT 55 U/L (7-56) 02/03/17 08:00 Alkaline Phosphatase 107 U/L (38-133) 02/03/17 08:00 Total Protein 6.3 g/dL (5.8-8.3) 02/03/17 08:00 Albumin 3.3 g/dL (3.0-4.8) 02/03/17 08:00 Globulin 3.0 gm/dL 02/03/17 08:00 Albumin/Globulin Ratio 1.1 (1.1-1.8) 02/03/17 08:00 Amylase 62 U/L (35-125) 02/02/17 00:00 Lipase 73 U/L (23-300) 02/02/17 00:00 Urine Color Yellow (YELLOW) 02/02/17 00:55 Urine Appearance Clear (CLEAR) 02/02/17 00:55 Urine pH 6.0 (4.7-8.0) 02/02/17 00:55 Ur Specific [place] 1.025 (1.005-1.035) 02/02/17 00:55 Urine Protein Trace mg/dL (<30 mg/dL) H 02/02/17 00:55 Urine Glucose (UA) Negative mg/dL (NEGATIVE) 02/02/17 00:55 Urine Ketones Negative mg/dL (NEGATIVE) 02/02/17 00:55 Urine Blood Negative (NEGATIVE) 02/02/17 00:55 Urine Nitrate Negative (NEGATIVE) 02/02/17 00:55 Urine Bilirubin Negative (NEGATIVE) 02/02/17 00:55 Urine Urobilinogen 0.2 E.U./dL (<1 E.U./dL) 02/02/17 00:55 Ur Leukocyte Esterase Negative Tai/uL (NEGATIVE) 02/02/17 00:55 Urine RBC 0 - 2 /hpf (0-2) 02/02/17 00:55 Urine WBC 0 - 2 /hpf (0-6) 02/02/17 00:55 Ur Epithelial Cells 0 - 2 /hpf (0-5) 02/02/17 00:55 Stool Leukocytes, Qual Negative (NEGATIVE) 02/02/17 06:01 Hepatitis A IgM Ab Negative (NEGATIVE) 02/02/17 07:30 Hep Bs Antigen Negative (NEGATIVE) 02/02/17 07:30 Hep B Core IgM Ab Negative (NEGATIVE) 02/02/17 07:30 Hepatitis C Antibody Negative (NEGATIVE) 02/02/17 07:30 HIV 1&2 Ag/Ab, 4th Gen Nonreactive (Nonreactive) 02/02/17 08:00 - Hospital Course Hospital Course: Patient is a 21yo male with no significant past medical history that presents c/ o abdominal pain. Patient reported that the pain started 3 days prior, localized to the left upper quadrant and describes it as being a dull, achy pain. He reports that the pain is non-radiating and has been associated with nausea, 4 episodes of NBNB emesis, subjective fevers and several episodes of watery diarrhea. He reported that his first noticable symptom was diarrhea and noticed scant amounts of blood in his stool yesterday. Patient moved to the from the [facility] [place] 7 years prior and reports not having traveled outside of the since then. He denies sick contacts however states that he had some questionable [place] food approximately 1 week ago. Reported no apparent alleviating or exacerbating factors and prior to this was in his normal state of health. Denies chest pain, palpitations, SOB, chills, cough, dysuria, frequency, urgency, focal weakness, numbness, tingling. CT abd/pelvis revealed numerous enlarged lymph nodes throughout the abdomen. The patient was admitted for intractable abdominal pain. He continued to experience diarrhea. C- diff and stool studies were unremarkable. HIV and Hepatitis are negative. Abd US was unremarkable. Patient was started on Ciprofloxacin and Flagyl empirically. GI was consulted and determined the patient was suffering from infectious colitis. The patient was discharged on Ciprofloxacin and Flagyl. He was given copies of his imaging. Patient will f/u with his PCP in [place]. Discharge Exam - Head Exam Head Exam: ATRAUMATIC, NORMOCEPHALIC - Eye Exam Eye Exam: EOMI, PERRL - ENT Exam ENT Exam: Mucous Membranes Moist - Respiratory Exam Respiratory Exam: Clear to PA & Lateral. absent: Rales, Rhonchi - Cardiovascular Exam Cardiovascular Exam: REGULAR RHYTHM, +S1, +S2 - GI/Abdominal Exam GI & Abdominal Exam: Normal Bowel Sounds, Soft. absent: Distended, Firm, Tenderness - Extremities Exam Extremities exam: full ROM, normal inspection, pedal pulses present - Neurological Exam Neurological exam: Alert, Oriented x3 - Psychiatric Exam Psychiatric exam: Normal Affect, Normal Mood - Skin Skin Exam: Dry, Warm Discharge Plan - Discharge Medications Prescriptions: Ciprofloxacin HCl [Cipro] 500 mg PO BID #14 tablet Metronidazole [Flagyl] 500 mg PO TID #21 tablet - Follow Up Plan Condition: FAIR Disposition: HOME/ ROUTINE Instructions: Lymphadenopathy (GEN), Gastroenteritis (DC), Acute Nausea and Vomiting (DC), Acute Diarrhea (GEN) Additional Instructions: 1. Follow up with PMD in [place]. 2. Follow up with GI as per PMD. 3. Needs repeat CT abdomen in 1 month to see resolution of mesentric lymphadenopathy. Referrals: Kevin Antonio NS [Primary Care Provider] - Ryan Berman MD [Staff Provider] - <Chica Hernandez - Last Filed: 02/03/17 16:55> Provider - Provider Date of Admission: 02/02/17 01:35 Attending physician: Chica Hernandez MD Primary care physician: [facility] Course - Lab Results Lab Results: Micro Results 02/02/17 06:01 Stool Ova and Parasite Concentrate Exam - Final 02/02/17 02:32 Blood Blood Culture - Preliminary NO GROWTH AFTER 24 HOURS 02/02/17 02:02 Blood Blood Culture - Preliminary NO GROWTH AFTER 24 HOURS 02/02/17 06:01 Stool C. difficile Antigen & Toxin A,B (M - Final Most Recent Lab Values WBC 16.6 10^3/ul (4.5-11.0) H 02/03/17 08:00 RBC 4.57 10^6/uL (3.5-6.1) 02/03/17 08:00 Hgb 13.5 gm/dL (14.0-18.0) L 02/03/17 08:00 Hct 38.4 % (42.0-52.0) L 02/03/17 08:00 MCV 84.0 fL (80.0-105.0) 02/03/17 08:00 MCH 29.5 pg (25.0-35.0) 02/03/17 08:00 MCHC 35.2 g/dl (31.0-37.0) 02/03/17 08:00 RDW 13.2 % (11.5-14.5) 02/03/17 08:00 Plt Count 254 10^3/uL (120.0-450.0) 02/03/17 08:00 MPV 11.4 fl (7.0-11.0) H 02/03/17 08:00 Gran % 53.8 % (50.0-68.0) 02/03/17 08:00 Lymph % (Auto) 15.1 % (22.0-35.0) L 02/03/17 08:00 Bledso[place] % (Auto) 7.0 % (1.0-6.0) H 02/03/17 08:00 Eos % (Auto) 23.7 % (1.5-5.0) H 02/03/17 08:00 Baso % (Auto) 0.4 % (0.0-3.0) 02/03/17 08:00 Gran # 8.96 (1.4-6.5) H 02/03/17 08:00 Lymph # 2.5 (1.2-3.4) 02/03/17 08:00 [place] # 1.2 (0.1-0.6) H 02/03/17 08:00 Eos # 3.9 (0.0-0.7) H 02/03/17 08:00 Baso # 0.06 K/mm3 (0.0-2.0) 02/03/17 08:00 Neutrophils % (Manual) 54 % (50.0-70.0) 02/02/17 00:00 Band Neutrophils % 3 % (0-2) H 02/02/17 00:00 Lymphocytes % (Manual) 17 % (22.0-35.0) L 02/02/17 00:00 Monocytes % (Manual) 8 % (1.0-6.0) H 02/02/17 00:00 Eosinophils % (Manual) 18 % (0.0-3.0) H 02/02/17 00:00 Platelet Evaluation Normal (NORMAL) 02/02/17 00:00 Sodium 139 mmol/L (132-148) 02/03/17 08:00 Potassium 3.5 mmol/L (3.6-5.0) L 02/03/17 08:00 Chloride 106 mmol/L (98-107) 02/03/17 08:00 Carbon Dioxide 23 mmol/L (21-33) 02/03/17 08:00 Anion Gap 14 (10-20) 02/03/17 08:00 BUN 9 mg/dL (7-21) 02/03/17 08:00 Creatinine 1.0 mg/dL (0.5-1.4) 02/03/17 08:00 Est GFR ( Amer) > 60 02/03/17 08:00 Est GFR (Non-Af Amer) > 60 02/03/17 08:00 Random Glucose 77 mg/dL (70-110) 02/03/17 08:00 Calcium 8.8 mg/dL (8.4-10.5) 02/03/17 08:00 Total Bilirubin 0.3 mg/dL (0.2-1.3) 02/03/17 08:00 AST 26 U/L (15-59) 02/03/17 08:00 ALT 55 U/L (7-56) 02/03/17 08:00 Alkaline Phosphatase 107 U/L (38-133) 02/03/17 08:00 Total Protein 6.3 g/dL (5.8-8.3) 02/03/17 08:00 Albumin 3.3 g/dL (3.0-4.8) 02/03/17 08:00 Globulin 3.0 gm/dL 02/03/17 08:00 Albumin/Globulin Ratio 1.1 (1.1-1.8) 02/03/17 08:00 Amylase 62 U/L (35-125) 02/02/17 00:00 Lipase 73 U/L (23-300) 02/02/17 00:00 Urine Color Yellow (YELLOW) 02/02/17 00:55 Urine Appearance Clear (CLEAR) 02/02/17 00:55 Urine pH 6.0 (4.7-8.0) 02/02/17 00:55 Ur Specific [place] 1.025 (1.005-1.035) 02/02/17 00:55 Urine Protein Trace mg/dL (<30 mg/dL) H 02/02/17 00:55 Urine Glucose (UA) Negative mg/dL (NEGATIVE) 02/02/17 00:55 Urine Ketones Negative mg/dL (NEGATIVE) 02/02/17 00:55 Urine Blood Negative (NEGATIVE) 02/02/17 00:55 Urine Nitrate Negative (NEGATIVE) 02/02/17 00:55 Urine Bilirubin Negative (NEGATIVE) 02/02/17 00:55 Urine Urobilinogen 0.2 E.U./dL (<1 E.U./dL) 02/02/17 00:55 Ur Leukocyte Esterase Negative Tai/uL (NEGATIVE) 02/02/17 00:55 Urine RBC 0 - 2 /hpf (0-2) 02/02/17 00:55 Urine WBC 0 - 2 /hpf (0-6) 02/02/17 00:55 Ur Epithelial Cells 0 - 2 /hpf (0-5) 02/02/17 00:55 Stool Leukocytes, Qual Negative (NEGATIVE) 02/02/17 06:01 Hepatitis A IgM Ab Negative (NEGATIVE) 02/02/17 07:30 Hep Bs Antigen Negative (NEGATIVE) 02/02/17 07:30 Hep B Core IgM Ab Negative (NEGATIVE) 02/02/17 07:30 Hepatitis C Antibody Negative (NEGATIVE) 02/02/17 07:30 HIV 1&2 Ag/Ab, 4th Gen Nonreactive (Nonreactive) 02/02/17 08:00 Attending/Attestation - Attestation I have personally seen and examined this patient.: Yes I have fully participated in the care of the patient.: Yes I have reviewed all pertinent clinical information, including history, physical exam and plan: Yes Notes (Text): 02/03/17 16:36 attending note; Patient seen and examined with resident. Patient is a 21-year-old male admitted with diarrhea. Possible infectious colitis. Treated with IV fluids, IV Rocephin and Flagyl. CT abdomen showed nonspecific mesenteric lymphadenopathy possibly secondary to colitis. HIV, hepatitis profile is negative. Advised to follow-up with PMD. Needs repeat CT scan to ensure the resolution of mesenteric lymphadenopathy. Diagnosis; colitis mesentric lymphadenopathy 02/03/17 16:55
== END 2017-02-03 14:00 | disposition home or self-care (01) ==
LOC: ED 22:20 → ERH 02-02 01:35 → 5RNO 02-02 04:25
PROVIDERS: ADMIT Internal Medicine; ATTEND Internal Medicine
DX: A09 Infectious gastroenteritis and colitis, unspecified (principal); R59.1 Generalized enlarged lymph nodes
CPT/HCPCS: 36415; 74176; 76700; 80053; 80074; 80320; 81001; 82009; 82150; 83690; 84600; 85025; 87040; 87045; 87177; 87209; 87324; 89055; 93971; 96365; 96367; 96375; 96376; 99284; C9113; G0378; J0696; J0744; J2405; J7040

== ENCOUNTER 2017-07-25 09:40 | Emergency (ER) | payer SELFPAY ==
[2017-07-25 09:59] VITALS: BMI 30.5
--- NOTE | 2017-07-25 10:02 | ED PDOC ---
Arrival/HPI - General Time Seen by Provider: 07/25/17 09:53 Historian: Patient - History of Present Illness Narrative History of Present Illness (Text): 07/25/17 10:01 22yo male with no Past medical history present with complaint of generalized achy pain since this morning. He denies sore throat, fever, chills, nausea, vomiting, ear pain, cough, abdominal pain, chest pain, back pain, urinary symptoms, sick contact. Past Medical History - Provider Review Nursing Documentation Reviewed: Yes - Infectious Disease Hx of Infectious Diseases: None - Cardiac Hx Cardiac Disorders: No - Pulmonary Hx Respiratory Disorders: No - Neurological Hx Neurological Disorder: No - HEENT Hx HEENT Disorder: No - Renal Hx Renal Disorder: No - Endocrine/Metabolic Hx Endocrine Disorders: No - Hematological/Oncological Hx Blood Disorders: No - Integumentary Hx Dermatological Disorder: No - Musculoskeletal/Rheumatological Hx Musculoskeletal Disorders: No Hx Falls: No - Gastrointestinal Hx Gastrointestinal Disorders: No - Genitourinary/Gynecological Hx Genitourinary Disorders: No - Psychiatric Hx Psychophysiologic Disorder: No Hx Substance Use: No Family/Social History - Physician Review Nursing Documentation Reviewed: Yes Family/Social History: Unknown Family HX Smoking Status: Never Smoked Hx Alcohol Use: Yes Hx Substance Use: No Allergies/Home Meds Allergies/Adverse Reactions: Allergies shellfish derived Allergy (Verified 02/01/17 22:43) SHORTNESS OF BREATH Review of Systems - Physician Review All systems were reviewed & negative as marked: Yes - Review of Systems Constitutional: Normal Eyes: Normal ENT: Normal Respiratory: Normal Cardiovascular: Normal Gastrointestinal: Normal Genitourinary Male: Normal Musculoskeletal: Myalgias Skin: Normal Neurological: Normal Endocrine: Normal Hemo/Lymphatic: Normal Psychiatric: Normal Physical Exam Vital Signs Reviewed: Yes Vital Signs Temp Pulse Resp BP Pulse Ox 07/25/17 09:41 98.7 F 91 H 18 150/81 100 Temperature: Afebrile Blood Pressure: Normal Pulse: Regular Respiratory Rate: Normal Appearance: Positive for: Well-Appearing, Non-Toxic, Comfortable Pain Distress: None Mental Status: Positive for: Alert and Oriented X 3 - Systems Exam Head: Present: Atraumatic, Normocephalic Pupils: Present: PERRL Extroacular Muscles: Present: EOMI Conjunctiva: Present: Normal Mouth: Present: Moist Mucous Membranes Neck: Present: Normal Range of Motion Respiratory/Chest: Present: Clear to Auscultation, Good Air Exchange. No: Respiratory Distress, Accessory Muscle Use Cardiovascular: Present: Regular Rate and Rhythm, Normal S1, S2. No: Murmurs Abdomen: Present: Normal Bowel Sounds. No: Tenderness, Distention, Peritoneal Signs Back: Present: Normal Inspection Upper Extremity: Present: Normal Inspection. No: Cyanosis, Edema Lower Extremity: Present: Normal Inspection. No: Edema Neurological: Present: GCS=15, CN II-XII Intact, Speech Normal Skin: Present: Warm, Dry, Normal Color. No: Rashes Psychiatric: Present: Alert, Oriented x 3, Normal Insight, Normal Concentration Medical Decision Making ED Course and Treatment: 07/25/17 11:02 Pt in Emergency department for stated history. He was hemodynamically stable. Denies any other somatic complaint beside myalgia. Ibuprofen 600mg improved his pain on re evaluation. Rapid flu was negative. Result was DW the pt. he was advised to drink plenty of fluid and take Ibuprofen or Tylenol as needed for pain. Referred to his PMD. [facility] Emergency department for any new or worsening symptoms. - Lab Interpretations Lab Results: Lab Results 07/25/17 10:15: Influenza Typ A,B (EIA) Negative for flu a/b - Medication Orders Current Medication Orders: Discontinued Medications Ibuprofen (Motrin Tab) 600 mg PO STAT STA Stop: 07/25/17 10:04 Last Admin: 07/25/17 10:22 Dose: 600 mg Disposition/Present on Arrival - Present on Arrival Any Indicators Present on Arrival: No History of DVT/PE: No History of Uncontrolled Diabetes: No Urinary Catheter: No History Surgical Site Infection Following: None - Disposition Have Diagnosis and Disposition been Completed?: Yes Diagnosis: Myalgia Disposition: HOME/ ROUTINE Disposition Time: 11:05 Patient Plan: Discharge Condition: STABLE Discharge Instructions (ExitCare): Musculoskeletal Pain (ED) Additional Instructions: Follow up with your doctor Drink plenty of fluid and rest Return to Emergency department for any new or worsening symptoms Prescriptions: Ibuprofen [Motrin Tab] 600 mg PO Q6 #20 tab Referrals: [facility] [place] - Follow up with primary
[2017-07-25 10:12] VITALS: TEMP 98.7; O2SAT 100
[2017-07-25 11:19] VITALS: BP 145/78; PULSE 89; RESP 17
== END 2017-07-25 11:24 | disposition home or self-care (01) ==
LOC: ED 09:40
DX: M79.1 Myalgia (principal)